=== PATIENT | female | born 1935 | race Caucasian/White ===

== ENCOUNTER 2020-03-08 11:20 | Emergency (ER) | payer OTHER ==
[~2020-03-08] VITALS: Ht 157.5 cm; Wt 59.0 kg
[~2020-03-08 11:20] MED LIST: FAMOTIDINE20 MG PO; LOSARTAN POTASS50 MG PO; METOCLOPRAMIDE H5 MG PO; METOPROLOL TART50 MG PO; PANTOPRAZOLE SO40 MG PO
[2020-03-08] MEDS ORDERED: LOSARTAN POTAS100 MG PO (11:51)
[2020-03-08] MEDS ORDERED: IMBRUVICA420 MG PO (11:52)
[2020-03-08] MEDS ORDERED: DIGOXIN125 MCG PO (11:52)
[2020-03-08] MEDS ORDERED: METOPROLOL SUCC50 MG PO (11:52)
[2020-03-08] MEDS ORDERED: NORVASC5 MG PO (11:53)
[2020-03-08] MEDS ORDERED: VITAMIN C1000 MG PO (11:53)
[2020-03-08] MEDS ORDERED: ALPHA LIPOIC A600 MG PO (11:54)
[2020-03-08] MEDS ORDERED: METRONIDAZOLE375 MG PO (11:55)
[2020-03-08] MEDS ORDERED: CIPRO500 MG PO (11:55)
[2020-03-08] MEDS ORDERED: DICYCLOMIN10 MG/5 M1 (11:56)
[2020-03-08] MEDS ORDERED: INTESTINEX680 M2 PO (17:20)
== END 2020-03-08 19:39 | disposition home or self-care (01) ==
LOC: ER 11:20
DX: E86.0 Dehydration (principal); Z03.818 Encounter for observation for suspected exposure to other biological agents ruled out; R10.31 Right lower quadrant pain; R10.32 Left lower quadrant pain; R19.7 Diarrhea, unspecified

== ENCOUNTER 2020-03-16 07:05 | Outpatient (CLI) | payer OTHER ==
[~2020-03-16 07:05] MED LIST changes: +ALPHA LIPOIC A600 MG PO; +CIPRO500 MG PO; +DICYCLOMIN10 MG/5 M1; +DIGOXIN125 MCG PO; +IMBRUVICA420 MG PO; +INTESTINEX680 M2 PO; +LOSARTAN POTAS100 MG PO; +METOPROLOL SUCC50 MG PO; +METRONIDAZOLE375 MG PO; +NORVASC5 MG PO; +VITAMIN C1000 MG PO
== END 2020-03-16 07:10 | disposition home or self-care (01) ==
LOC: TOM 07:05
PROVIDERS: ATTEND Internal Medicine Gastroenterology
DX: R10.13 Epigastric pain (principal); R63.4 Abnormal weight loss; R11.2 Nausea with vomiting, unspecified

== ENCOUNTER → 2020-03-19 | Outpatient (CLI) | payer OTHER | END | disposition home or self-care (01) | LOC: RX STUDY 08:38 | PROVIDERS: ATTEND Internal Medicine Gastroenterology | DX: K57.10 Diverticulosis of small intestine without perforation or abscess without bleeding (principal); R10.13 Epigastric pain; R11.2 Nausea with vomiting, unspecified; R63.4 Abnormal weight loss ==

== ENCOUNTER 2022-11-17 08:35 | Inpatient (IN) | payer OTHER ==
[~2022-11-17] VITALS: Ht 157.5 cm; Wt 49.9 kg
[2022-11-17] MEDS ORDERED: FAMOTIDINE20 MG (08:58)
--- NOTE | 2022-11-17 08:58 | NUR ---
SE RECIBE PTE FEMENINA DE 86Y ALERTA Y ORIENTADA X3, REFIERE QUE DESDE HACE 5 [employer] GUZMAN PRESENTADO DOLOR ABDOMINAL Y NAUSEAS. SE MONITOREAN S/V, SE REALIZA EKG Y SE UBICA A PTE EN AREA DE OBSERVACION.
--- NOTE | 2022-11-17 09:01 | NUR ---
AL [facility] PTE PRESENTA PULSO DE 30. PTE CORRE CON KATHARINA PULSO. PTE ES REFERIDA POR DR.MORALES MUKHERJEE PARA VISITAR LA TREVOR DE EMERGENCIA.
--- NOTE | 2022-11-17 09:35 | NUR ---
SE RECIBE PTE FEMENINA DE 86 YRS ALERTA CONCIENTE Y TRANQUILA EN COMPANIA DE FAMILIAR.PTE ES EVALUADA POR EL JC MOTT QUIE ORDENA TRATAMINTO LA CUAL SE EJECUTA POR MS.JIMENEZ GOODE . SE ACOMODA EN JENNIFER CON BARABDA ELEVADA. Y SE MANTIENE BAJO OBSERVACION .
--- NOTE | 2022-11-17 15:12 | NUR ---
SE RECIBE PTE FEMENINA DE 86 ANOS DE EDAD .PTE ALERTA,ESTABLE Y ORIENTADA.SE EDUCA SOBRE EL TRATAMIENTO QUE RECIBIRA EN EL HOSPITAL Y ESTA REFIERE ENTENDER SE MANTIENE EN LA ESPERA DEL
[2022-11-23] MEDS ORDERED: SIMVASTATIN20 MG (15:54)
[2022-11-23] MEDS ORDERED: IMBRUVICA420 MG (15:54)
[2022-11-23] MEDS ORDERED: FUROSEMIDE20 MG (15:54)
== END 2022-11-24 17:58 | disposition home or self-care (01) | DRG 308 ==
LOC: ER 08:35 → SURH 18:05
PROVIDERS: ADMIT Internal Medicine Hematology & Oncology; ATTEND Internal Medicine Hematology & Oncology
PROC: 4A12X4Z Monitoring of Cardiac Electrical Activity, External Approach (ICD-10-PCS; 2022-11-18)
PROC: B24BZZZ Ultrasonography of Heart with Aorta (ICD-10-PCS; 2022-11-18)
PROC: BW24ZZZ Computerized Tomography (CT Scan) of Chest and Abdomen (ICD-10-PCS; principal; 2022-11-20)
DX: I48.91 Unspecified atrial fibrillation (principal); J18.9 Pneumonia, unspecified organism; C91.10 Chronic lymphocytic leukemia of B-cell type not having achieved remission; E86.0 Dehydration; K29.60 Other gastritis without bleeding; T46.0X1A Poisoning by cardiac-stimulant glycosides and drugs of similar action, accidental (unintentional), initial encounter; R09.02 Hypoxemia; E87.6 Hypokalemia; I27.20 Pulmonary hypertension, unspecified; Z20.822 Contact with and (suspected) exposure to COVID-19; N18.30 Chronic kidney disease, stage 3 unspecified; D63.0 Anemia in neoplastic disease

== ENCOUNTER 2023-06-10 00:50 | Inpatient (IN) | payer OTHER ==
[~2023-06-10] VITALS: Ht 154.9 cm; Wt 55.8 kg
[~2023-06-10 00:50] MED LIST changes: +FAMOTIDINE20 MG; +FUROSEMIDE20 MG; +IMBRUVICA420 MG; +SIMVASTATIN20 MG
[2023-06-10 02:16] LABS: HEMATOCRIT 33.1 % (36.0-45.00); HEMOGLOBIN 11.1 g/dL (12.0-15.00); MEAN CELL VOLUME 90.2 fL (80.00-100.00); MEAN CORPUSCULAR HEMOGLOBIN 30.3 pg (27.00-32.0); MEAN CORPUSCULAR HGB CONC 33.6 g/dl (32.0-36.0); PLATELET COUNT 176 K/uL (150-450); RED BLOOD COUNT 3.67 M/uL (4.00-6.00); RED CELL DISTRIBUTION WIDTH 14.2 % (11.5-14.5)
[2023-06-10 02:29] LABS: ALBUMIN 3.6 gm/dL (3.4-5.0); BILIRUBIN TOTAL 0.96 mg/dL (0.3-1.2); CREATININE SERUM 1.29 mg/dL (0.55-1.02); GFR 39.28; GLOBULINA 3.2 G/DL (2.4-3.5); POTASSIUM 3.88 mEq/L (3.5-5.1); TOTAL PROTEIN 6.8 gm/dL (6.4-8.2)
[2023-06-10 03:35] LABS: PH,URINE 7.5 (5.0-8.0); URINE APPEARANCE Clear; URINE BILIRRUBIN Negative (NEGATIVE); URINE BLOOD Negative; URINE COLOR Yellow; URINE GLUCOSE Negative (NEGATIVE); URINE LEUKOCYTE Negative; URINE NITRATE Negative; URINE PROTEIN Negative (NEGATIVE); URINE UROBILINOGEN 0.2 E.U./dl
[2023-06-10 03:39] LABS: URINE BACTERIA 91.8 uL (0.0-1933); URINE EPITHELIAL CELLS 2.3 uL (0.0-38.8); URINE RBC 5.5 uL (0.0-20.8); URINE WBC 4.4 uL (0.0-23.2)
[2023-06-11 07:56] LABS: ALBUMIN 3.7 gm/dL (3.4-5.0); BILIRUBIN TOTAL 3.03 mg/dL (0.3-1.2); CREATININE SERUM 1.17 mg/dL (0.55-1.02); GFR 43.96; GLOBULINA 2.7 G/DL (2.4-3.5); MAGNESIUM 1.9 mg/dL (1.8-2.4); POTASSIUM 4.29 mEq/L (3.5-5.1); TOTAL PROTEIN 6.4 gm/dL (6.4-8.2)
[2023-06-11 11:01] LABS: HEMATOCRIT 36.5 % (36.0-45.00); HEMOGLOBIN 12.3 g/dL (12.0-15.00); MEAN CELL VOLUME 87.9 fL (80.00-100.00); MEAN CORPUSCULAR HEMOGLOBIN 29.7 pg (27.00-32.0); MEAN CORPUSCULAR HGB CONC 33.8 g/dl (32.0-36.0); PLATELET COUNT 173 K/uL (150-450); RED BLOOD COUNT 4.15 M/uL (4.00-6.00)
[2023-06-12 06:08] LABS: INR 1.19; PARTIAL THROMBOPLASTIN TIME 34.9 SECONDS (22.0-34.0); PROTHROMBIN TIME 12.3 SECONDS (9.0-11.5)
[2023-06-12 06:28] LABS: ALBUMIN 3.2 gm/dL (3.4-5.0); BILIRUBIN TOTAL 2.31 mg/dL (0.3-1.2); BILIRUBIN,CONJUGATED 0.57 mg/dL (0.0-0.2); BILIRUBIN,UNCONJUGATED 1.74 mg/dL (0.0-0.6); CALCIUM 8.8 mg/dL (8.5-10.1); CHOL HDL RATIO 2.3 (0-5.0); CREATININE SERUM 1.13 mg/dL (0.55-1.02); GFR 45.76; GLOBULINA 2.4 G/DL (2.4-3.5); MAGNESIUM 1.9 mg/dL (1.8-2.4); POTASSIUM 4.32 mEq/L (3.5-5.1); TOTAL PROTEIN 5.6 gm/dL (6.4-8.2)
[2023-06-12 06:44] LABS: HEMATOCRIT 33.2 % (36.0-45.00); HEMOGLOBIN 11.3 g/dL (12.0-15.00); MEAN CELL VOLUME 87.8 fL (80.00-100.00); MEAN CORPUSCULAR HEMOGLOBIN 29.9 pg (27.00-32.0); MEAN CORPUSCULAR HGB CONC 34.1 g/dl (32.0-36.0); PLATELET COUNT 161 K/uL (150-450); RED BLOOD COUNT 3.78 M/uL (4.00-6.00); RED CELL DISTRIBUTION WIDTH 14.1 % (11.5-14.5)
[2023-06-14 06:14] LABS: HEMATOCRIT 31.5 % (36.0-45.00); HEMOGLOBIN 10.7 g/dL (12.0-15.00); MEAN CELL VOLUME 90.2 fL (80.00-100.00); MEAN CORPUSCULAR HEMOGLOBIN 30.5 pg (27.00-32.0); MEAN CORPUSCULAR HGB CONC 33.9 g/dl (32.0-36.0); PLATELET COUNT 169 K/uL (150-450); RED BLOOD COUNT 3.49 M/uL (4.00-6.00); RED CELL DISTRIBUTION WIDTH 14.1 % (11.5-14.5)
[2023-06-14 15:01] LABS: URINE APPEARANCE Clear; URINE BILIRRUBIN Negative (NEGATIVE); URINE BLOOD Large; URINE COLOR Yellow; URINE GLUCOSE Negative (NEGATIVE); URINE LEUKOCYTE Trace; URINE NITRATE Negative; URINE PROTEIN 30 (NEGATIVE); URINE UROBILINOGEN 0.2 E.U./dl
[2023-06-14 15:05] LABS: URINE BACTERIA 45.3 uL (0.0-1933); URINE EPITHELIAL CELLS 4.9 uL (0.0-38.8); URINE RBC 1156.4 uL (0.0-20.8); URINE WBC 41.5 uL (0.0-23.2)
[2023-06-15] MEDS ORDERED: LOSARTAN POTAS100 MG PO (12:50)
[2023-06-15] MEDS ORDERED: NORVASC5 MG PO (12:50)
[2023-06-15] MEDS ORDERED: METOPROLOL SUCC50 MG PO (12:51)
[2023-06-15] MEDS ORDERED: SIMVASTATIN20 MG PO (12:51)
[2023-06-15] MEDS ORDERED: FAMOTIDINE20 MG PO (12:52)
[2023-06-15] MEDS ORDERED: PYRIDIUM100 M1 PO (12:53)
[2023-06-15] MEDS ORDERED: CIPRO500 MG PO (12:55)
== END 2023-06-15 13:46 | disposition home or self-care (01) | DRG 392 ==
LOC: ER 00:51 → MEDJ 16:02
PROVIDERS: ADMIT Internal Medicine Hematology & Oncology; ATTEND Internal Medicine Hematology & Oncology
PROC: BW21ZZZ Computerized Tomography (CT Scan) of Abdomen and Pelvis (ICD-10-PCS; principal; 2023-06-10)
DX: K57.92 Diverticulitis of intestine, part unspecified, without perforation or abscess without bleeding (principal); C91.10 Chronic lymphocytic leukemia of B-cell type not having achieved remission; I10 Essential (primary) hypertension

== ENCOUNTER 2023-06-20 02:40 | Emergency (ER) | payer OTHER ==
[~2023-06-20] VITALS: Ht 170.2 cm; Wt 56.7 kg
[~2023-06-20 02:40] MED LIST changes: +PYRIDIUM100 M1 PO; +SIMVASTATIN20 MG PO
== END 2023-06-20 07:40 | disposition home or self-care (01) ==
LOC: ER 02:41
DX: M94.0 Chondrocostal junction syndrome [Tietze] (principal); I10 Essential (primary) hypertension; Z88.6 Allergy status to analgesic agent; Z88.0 Allergy status to penicillin
CPT/HCPCS: 36415; 93005; 96372; 99284; J1100

== ENCOUNTER → 2024-04-30 07:11 | Outpatient (CLI) | payer OTHER ==
[~2024-04-30 07:11] MED LIST changes: +ISOSORBIDE DINI30 MG PO; +LASIX20 MG PO; +PEPCID AC10 MG PO
== END | disposition home or self-care (01) ==
LOC: NUCLEAR 07:00
PROVIDERS: ATTEND Internal Medicine
DX: I20.9 Angina pectoris, unspecified (principal)
CPT/HCPCS: 78452; 93017; A9500; J0153

== ENCOUNTER 2024-11-07 17:38 | Emergency (ER) | payer OTHER ==
[~2024-11-07] VITALS: Ht 154.9 cm; Wt 61.7 kg
[2024-11-07] MEDS ORDERED: PIROXICAM20 MG (18:34)
[2024-11-07 20:18] LABS: BASO % 0.3 % (0.1-1.2); EOS # 0.28 (0.04-0.54); EOS % 1.5 % (0.7-7.0); HEMATOCRIT 31.1 % (34.1-44.9); HEMOGLOBIN 9.9 g/dL (11.2-15.7); LYMPH # 9.97 (1.18-3.74); LYMPH % 53.7 % (19.3-53.1); MEAN CORPUSCULAR HEMOGLOBIN 30.4 pg (25.6-32.2); MONO # 1.59 (0.24-0.82); MONO % 8.6 % (4.7-12.5); NEUT # 6.57 (1.56-6.13); NEUT % 35.5 % (34.0-71.1); PLATELET COUNT 235 K/uL (163-369); RED BLOOD COUNT 3.26 M/uL (3.93-5.22); RED CELL DISTRIBUTION WIDTH 14.4 % (11.6-14.4)
[2024-11-07 20:25] LABS: INR 1.05; PARTIAL THROMBOPLASTIN TIME 25.9 SECONDS (22.0-34.0); PROTHROMBIN TIME 11.4 SECONDS (9.0-11.5)
[2024-11-07 20:29] LABS: ALBUMIN 3.2 gm/dL (3.4-5.0); BILIRUBIN TOTAL 0.56 mg/dL (0.3-1.2); CALCIUM 8.9 mg/dL (8.5-10.1); CREATININE SERUM 1.46 mg/dL (0.55-1.02); GFR 33.97; GLOBULINA 3.1 G/DL (2.4-3.5); POTASSIUM 4.28 mEq/L (3.5-5.1); TOTAL PROTEIN 6.3 gm/dL (6.4-8.2)
[2024-11-07] MEDS ORDERED: ANALPRAM HC 2.530 GM RECTAL (22:53)
== END 2024-11-07 23:05 | disposition home or self-care (01) ==
LOC: ER 18:51
PROVIDERS: General Practice
DX: K62.5 Hemorrhage of anus and rectum (principal); K64.9 Unspecified hemorrhoids; Z88.0 Allergy status to penicillin; Z88.6 Allergy status to analgesic agent

== ENCOUNTER 2025-03-05 06:54 | Emergency (ER) | payer OTHER ==
[~2025-03-05] VITALS: Ht 154.9 cm; Wt 64.4 kg
[~2025-03-05 06:54] MED LIST changes: +ANALPRAM HC 2.530 GM RECTAL; +PIROXICAM20 MG
[2025-03-05 07:00] VITALS: BP 140/80; O2SAT 99
[2025-03-05] MEDS ORDERED: TOPROL XL25 M1 PO (07:15)
[2025-03-05] MEDS ORDERED: PROTONIX40 M1 PO (07:15)
[2025-03-05] MEDS ORDERED: ROSUVASTATIN CAL5 MG PO (07:16)
[2025-03-05] MEDS ORDERED: RINGERS SOLUTION,LACTATED 1,000 ML IV STA (07:41)
[2025-03-05] MEDS ORDERED: ONDANSETRON HCL 2 MG/ML VIAL IV STA (07:41)
[2025-03-05] MEDS ORDERED: FAMOTIDINE/PF 20 MG/2 ML VIAL IV PUSH STA (07:41)
[2025-03-05] MEDS ORDERED: ONDANSETRON HCL 2 MG/ML VIAL ONE (07:52)
[2025-03-05] MEDS ORDERED: FAMOTIDINE/PF 20 MG/2 ML VIAL ONE (07:53)
[2025-03-05 08:37] LABS: BASO % 0.2 % (0.1-1.2); EOS # 0.13 (0.04-0.54); EOS % 0.8 % (0.7-7.0); LYMPH # 9.48 (1.18-3.74); LYMPH % 61.2 % (19.3-53.1); MEAN PLATELET VOLUME 11.00 fl (9.4-12.4); MONO # 0.38 (0.24-0.82); MONO % 2.5 % (4.7-12.5); NEUT # 5.41 (1.56-6.13); NEUT % 35.0 % (34.0-71.1); RED CELL DISTRIBUTION WIDTH 13.5 % (11.6-14.4)
[2025-03-05 09:19] LABS: ALT/SGPT 20.0 U/L (12-78); AST/SGOT 21.0 U/L (15-37); BILIRUBIN TOTAL 1.89 mg/dL (0.3-1.2); BUN CREA RATIO 18.0 (7.0-25.0); CREATININE SERUM 1.02 mg/dL (0.55-1.02); GFR 51.26; GLOBULINA 2.8 G/DL (2.4-3.5); GLUCOSE FASTING 87.0 mg/dL (65-100); OSMOLALITY SERUM 290.0 MOSM/KG (275-295)
[2025-03-05 10:44] LABS: URINE APPEARANCE Clear; URINE BILIRRUBIN Negative (NEGATIVE); URINE BLOOD Negative; URINE COLOR Yellow; URINE GLUCOSE Negative (NEGATIVE); URINE KETONE Trace (NEGATIVE); URINE LEUKOCYTE Negative; URINE NITRATE Negative; URINE UROBILINOGEN 1.0 E.U./dl
[2025-03-05 10:48] LABS: URINE BACTERIA 279.6 uL (0.0-1933); URINE EPITHELIAL CELLS 28.1 uL (0.0-38.8); URINE RBC 18.7 uL (0.0-20.8); URINE WBC 12.7 uL (0.0-23.2)
[2025-03-05 11:28] LABS: URINE CAST 0.14 uL (0.0-1.40); URINE PROTEIN 100 (NEGATIVE)
== END 2025-03-05 14:28 | disposition home or self-care (01) ==
LOC: ER 06:54
PROVIDERS: General Practice
DX: R11.10 Vomiting, unspecified (principal); Z88.0 Allergy status to penicillin; Z88.6 Allergy status to analgesic agent; I49.8 Other specified cardiac arrhythmias; Z95.810 Presence of automatic (implantable) cardiac defibrillator; Z85.6 Personal history of leukemia